=== PATIENT | female | born 1950 | race Hispanic/Latino ===

== ENCOUNTER → 2017-08-20 | Outpatient (CLI) | payer OTHER | END | disposition home or self-care (01) | LOC: RAH 12:36 | PROVIDERS: ATTEND Family Medicine | DX: J90 Pleural effusion, not elsewhere classified (principal); M47.895 Other spondylosis, thoracolumbar region; J98.11 Atelectasis; I10 Essential (primary) hypertension; R53.83 Other fatigue; J18.9 Pneumonia, unspecified organism | CPT/HCPCS: 71046 ==

== ENCOUNTER → 2017-09-08 | Outpatient (CLI) | payer OTHER | END | disposition home or self-care (01) | LOC: RAH 12:30 | PROVIDERS: ATTEND Family Medicine | DX: J90 Pleural effusion, not elsewhere classified (principal); J18.9 Pneumonia, unspecified organism | CPT/HCPCS: 71046 ==

== ENCOUNTER → 2017-09-23 | Outpatient (CLI) | payer OTHER, MEDICARE | END | disposition home or self-care (01) | LOC: RAH 14:21 | PROVIDERS: ATTEND Internal Medicine | DX: J90 Pleural effusion, not elsewhere classified (principal); D47.2 Monoclonal gammopathy | CPT/HCPCS: 77075 ==

== ENCOUNTER → 2018-11-02 | Outpatient (CLI) | payer MEDICARE, OTHER | END | disposition home or self-care (01) | LOC: RAH 12:38 | PROVIDERS: ATTEND Physical Medicine & Rehabilitation | DX: M17.11 Unilateral primary osteoarthritis, right knee (principal) | CPT/HCPCS: 73562 ==

== ENCOUNTER → 2019-01-18 | Outpatient (CLI) | payer MEDICARE, OTHER | END | disposition home or self-care (01) | LOC: OIH 15:59 | PROVIDERS: ATTEND Family Medicine | DX: R05 Cough (principal); M47.815 Spondylosis without myelopathy or radiculopathy, thoracolumbar region | CPT/HCPCS: 71046 ==

== ENCOUNTER → 2020-05-05 | Outpatient (CLI) | payer MEDICARE, OTHER | END | disposition home or self-care (01) | LOC: RAH 10:48 | PROVIDERS: ATTEND Family Medicine | DX: Z12.31 Encounter for screening mammogram for malignant neoplasm of breast (principal); N64.89 Other specified disorders of breast | CPT/HCPCS: 77067 ==

== ENCOUNTER → 2021-08-24 | Outpatient (CLI) | payer MEDICARE, OTHER | END | disposition home or self-care (01) | LOC: RAH 13:23 | PROVIDERS: ATTEND Family Medicine | DX: Z12.31 Encounter for screening mammogram for malignant neoplasm of breast (principal) | CPT/HCPCS: 77067 ==

== ENCOUNTER → 2022-08-26 | Outpatient (CLI) | payer MEDICARE, OTHER | END | disposition home or self-care (01) | LOC: RAH 12:45 | PROVIDERS: ATTEND Family Medicine | DX: Z12.31 Encounter for screening mammogram for malignant neoplasm of breast (principal) | CPT/HCPCS: 77067 ==

== ENCOUNTER → 2022-09-16 | Outpatient (CLI) | payer MEDICARE, OTHER | END | disposition home or self-care (01) | LOC: RAH 15:06 | PROVIDERS: ATTEND Family Medicine | DX: R05.3 Chronic cough (principal) | CPT/HCPCS: 71046 ==

== ENCOUNTER → 2023-09-08 | Outpatient (CLI) | payer MEDICARE, OTHER ==
[~2023-09-08] MED LIST: ASPI-1197 PO; CALC-1125 PO; DOCU-116 PO; ERGO500093 PO; FOLI0.8C PO; FOLI0.8T22 PO; GABA-529 PO; LEVO5TAB13 PO; MAGN250C PO; METF-444 PO; METH-662 PO; MONT-39 PO; TRAM50TA4 PO; VALS160T29 PO; ZINC50TA64 PO
== END | disposition home or self-care (01) ==
LOC: RAH 14:46
PROVIDERS: ATTEND Family Medicine
DX: Z12.31 Encounter for screening mammogram for malignant neoplasm of breast (principal); N63.21 Unspecified lump in the left breast, upper outer quadrant; R92.323 Mammographic fibroglandular density, bilateral breasts; R92.1 Mammographic calcification found on diagnostic imaging of breast
CPT/HCPCS: 77067

== ENCOUNTER 2024-09-13 09:32 | Emergency (ER) | payer MEDICARE, OTHER ==
[~2024-09-13] VITALS: Ht 165.1 cm; Wt 109.8 kg
[2024-09-13 09:33] VITALS: BP 157/69; PULSE 71; RESP 16; TEMP 97.9
--- NOTE | 2024-09-13 10:20 | ERN ---
General Chief Complaint: FOOT INJURY/PAIN Stated Complaint: RT FOOT PAIN X 2 WEEKS Time Seen by MD: 09:44 Source: patient History of Present Illness Initial Comments Patient is a 74-year-old female coming in complaining of right foot pain. Patient states he had a injury to a two weeks ago was evaluated at an urgent Care. She states that she got an x-ray but was not told exactly what she had. She has been having some discomfort since then. Allergies: Coded Allergies: No Known Allergies (Unverified Allergy, Unknown, 06/23/23) Home Meds Active Scripts Methocarbamol (Robaxin) 750 Mg Tab, 500 MG PO TID, #15 TAB 0 Refills Prov:SIMON CARRENO MD 06/24/23 Gabapentin (Gabapentin) 100 Mg Capsule, 100 MG PO TID, #15 CAP 0 Refills Prov:SIMON CARRENO MD 06/24/23 Docusate Sodium (Colace) 100 Mg Capsule, 100 MG PO BID, #30 CAP 0 Refills Prov:SIMON CARRENO MD 06/24/23 Tramadol Hcl (Tramadol HCl) 50 Mg Tablet, 50 MG PO Q6HPRN PRN for PAIN, #28 TAB 0 Refills Prov:SIMON CARRENO MD 06/24/23 Reported Medications Zinc Amino Acid Chelate (Zinc) 50 Mg Tablet, 50 MG PO AD, TAB 06/24/23 Magnesium Citrate and Oxide (Magnesium) 250 Mg Capsule, 250 MG PO AD, CAP 06/24/23 Folic Acid (Folic Acid) 0.8 Mg Capsule, 0.8 MG PO DAILY, CAP 06/24/23 Calcium Carbonate (Calcium) 600 Mg Calcium (1500 Mg) Tablet, 600 MG PO DAILY, TAB 06/24/23 Montelukast Sodium (Montelukast Sodium) 10 Mg Tablet, 10 MG PO HS, TAB 06/24/23 Levocetirizine Dihydrochloride (Levocetirizine Dihydrochloride) 5 Mg Tablet, 5 MG PO HS, TAB 06/24/23 Ergocalciferol (Vitamin D2) (Vitamin D2) 1,250 Mcg (22859 Unit) Capsule, 1250 MCG PO AD, CAP 06/24/23 Folic Acid/Vitamin B Comp W-C (Melody-Darlene Tablet) 0.8 Mg Tablet, 0.8 MG PO DAILY, TAB 06/24/23 Aspirin (Aspirin) 81 Mg Tab.chew, 81 MG PO HS, TAB.CHEW 06/24/23 Metformin HCl (Metformin HCl) 500 Mg Tablet, 500 MG PO BID, TAB 06/24/23 Valsartan (Valsartan) 160 Mg Tablet, 160 MG PO DAILY, TAB 06/24/23 Past Medical History Past Medical History: Cancer, Diabetes-Type II, Diverticulosis, Hypertension, Renal Disese Past Surgical History: Cholecystectomy Surgical History Other: BACK SX Social History Social History: Negative ROS Dictation CONSTITUTIONAL: No chills, no fever, no weakness, no diaphoresis, no malaise. HEAD/FACE: No signs of trauma. EENT: No eye pain, no blurred vision, no tearing, no double vision, no ear pain, no ear discharge, no nose pain, no nasal congestion, no throat pain, no throat swelling, no mouth pain. RESPIRATORY: No cough, no orthopnea, no SOB, no stridor, no wheezing. CARDIOVASCULAR: No chest pain, no edema, no palpitations, no syncope. GASTROINTESTINAL/ABDOMINAL: No abdominal pain, no constipation, no diarrhea, no nausea, no vomiting. GENITOURINARY: No abnormal discharge, no dysuria, no frequent urination, no hematuria. No complaints of pain in the genitals. MUSCULOSKELETAL: No back pain, no gout,joint pain, no joint swelling, muscle pain, no muscle stiffness, no neck pain. INTEGUMENTARY: No change in color, no change in hair/nails, no dryness, no lesion, no lumps, no rash. NEUROLOGICAL/PSYCH: No anxiety, not depressed, no emotional problem, no headache, no numbness, no pre-existing deficit, no history of seizures, no tremors, no weakness. HEMATOLOGIC/LYMPHATIC: Not anemic, no history of blood clots, no apparent bleeding, no bruising, glands not swollen. All Systems Negative, Except as Noted. Physical Exam Physical Exam Dictation VITAL SIGNS: Reviewed. GENERAL APPEARANCE: Alert, oriented x3, no acute distress, obese. HEAD AND FACE: Non-traumatic. EYES: PERRL, pink conjunctivas, eyelid no trauma, anterior chamber clear. EARS: Pinnas intact and no signs of trauma or erythema. Ear canals clear and no discharge. TMs no erythema. NOSE: No discharge, no bleeding. OROPHARYNX: Mouth normal, teeth no caries, tongue pink. Pharynx clear, no erythema. Tonsils no exudates, no abscesses noted. Mucous membrane moist. NECK: Supple, non-tender, no thyromegaly, no masses, no JVD, no bruits. BREAST: Deferred. CHEST: No tenderness, no crepitus, no paradoxical movement, no retractions. LUNGS: Clear, well-ventilated, symmetric, no rales, no wheezing, no rhonchi, no stridor, good breath sounds bilaterally. HEART: Regular rate, regular rhythm, no murmur, no gallops. VASCULAR: No peripheral edema. ABDOMEN: Soft, positive bowel sounds, nondistended, no guarding, nontender, no rebound, no masses no hepatomegaly, no splenomegaly, no Burns's sign, no hernias. RECTAL: Deferred. GENITAL: Deferred. NEUROLOGICAL: Normal speech, gross motor function intact, gross sensory function intact. MUSCULOSKELETAL: Neck nontender, full range of motion, back nontender, full range of motion. EXTREMITIES: Nontender, full range of motion. Right foot pain on palpation SKIN: Color pink, dry, no turgor, no rash, no lacerations, no abrasions, no contusions. LYMPHATICS: Deferred. Results Laboratory and Microbiology Labs Reviewed?: Yes EKG/XRAY/US/CT/MRI X-RAY Comment X-ray foot-NAD MDM MDM: Differential diagnosis: Foot fracture, contusion, sprain, Rationale: Tests considered and ordered secondary to shared decision making include: Previous outside records reviewed: Old ER visits. Risk of complication and/or morbidity or mortality of patient management: None Medications-Per medication reconciliation Need for hospitalization: Patient does not meet criteria for hospitalization. Patient is a 74-year-old female coming in to be evaluated for right foot pain. X-ray did not disclose acute findings. I did mentioned in the findings which were more chronic changes. Also advised her appropriate follow up with the PCP for ongoing management. Patient will be discharged in stable condition. ED Course Orders Procedure Category Date Status Time Foot Comp 3+Vws Rt RAD 09/13/24 Taken 09:49 Vital Signs Date Time Temp Pulse Resp B/P (MAP) Pulse Ox O2 Delivery O2 Flow Rate FiO2 09/13/24 09:33 97.9 71 16 157/69 98 Room Air 0 DX & DISP Disposition: Discharge Departure Impression: Primary Impression: Foot contusion Condition: Stable Additional Instructions: FOLLOW-UP WITH PRIMARY CARE PROVIDER IN 1 TO 2 DAYS. TAKE MEDICATIONS DIRECTED HERE IN THE EMERGENCY ROOM. OKAY TO CONTINUE HOME MEDICATIONS UNLESS OTHERWISE DISCUSSED DURING YOUR VISIT IN THE EMERGENCY ROOM TODAY. RETURN TO YOUR NEAREST EMERGENCY ROOM IF SYMPTOMS WORSEN OR IF THERE IS NO IMPROVEMENT. CALL 911 IF YOU NEED IMMEDIATE ASSISTANCE. TAKE TYLENOL [id number] NEEDED AND IF NO CONTRAINDICATIONS ARE PRESENT. INCREASE ORAL HYDRATION. A WOUND CULTURE OR URINE CULTURE WAS ORDERED HERE IN THE EMERGENCY ROOM DEPARTMENT PLEASE FOLLOW-UP WITH PRIMARY CARE PROVIDER AND ADVISE THEM TO GET REPORTS FROM OUR FACILITY. IF YOU HAD ANY SHARYN WRAP/SPLINTS THAT WERE APPLIED HERE, PLEASE DO NOT REMOVE THEM UNTIL YOU SEE YOUR PRIMARY CARE OR SPECIALTY. Referrals: Referrals: SELF,REFERRAL (PCP) TAYLOR YOST MD Time of Disposition: 10:20 WARD DIAZ MD Sep 13, 2024 10:20
--- NOTE | 2024-09-13 10:34 | HMCIMG ---
FOOT COMP 3+VWS RT HISTORY: Pain COMPARISON: None TECHNIQUE: 3 images of right foot were obtained. FINDINGS: Transverse fracture is seen involving the midportion of the fifth proximal phalanx. No dislocation is seen. There is a calcaneal spur. Degenerative changes are seen. IMPRESSION: 1. Findings as described above.
== END 2024-09-13 10:36 | disposition home or self-care (01) ==
LOC: EDH 09:32
DX: S90.31XA Contusion of right foot, initial encounter (principal); E11.9 Type 2 diabetes mellitus without complications; I10 Essential (primary) hypertension; Z79.82 Long term (current) use of aspirin; Z79.84 Long term (current) use of oral hypoglycemic drugs; Z79.899 Other long term (current) drug therapy; Z90.49 Acquired absence of other specified parts of digestive tract; X58.XXXA Exposure to other specified factors, initial encounter; Y93.89 Activity, other specified; Y92.89 Other specified places as the place of occurrence of the external cause; Y99.8 Other external cause status
CPT/HCPCS: 73630; 99283

== ENCOUNTER 2024-12-02 08:59 | Emergency (ER) | payer MEDICARE, OTHER ==
[~2024-12-02] VITALS: Ht 165.1 cm; Wt 110.7 kg
[2024-12-02 10:15] LABS: IMMATURE GRANULOCYTE ABSOLUTE 0.02 K/uL (0-1); NUCLEATED RED BLOOD CELLS 0.0 % (0.0-0.19); PLATELET COUNT (AUTO) 248 K/uL (130-400); RED BLOOD CELL COUNT(AUTO) 4.23 MIL/uL (4.00-5.50); RED CELL DISTRIBUTION WIDTH 14.7 % (11.0-15.5); WHITE BLOOD COUNT (AUTO) 6.4 K/uL (4.8-10.8)
--- NOTE | 2024-12-02 10:17 | HMCIMG ---
US VENOUS DOPPLER UNILATERAL REASON: R/O DVT, PAIN SWELLING COMPARISON: None Technique: Right venous doppler ultrasound was performed with spectral analysis and color flow imaging technique. FINDINGS: There is a normal appearance of the common femoral, deep femoral, the profunda femoris and popliteal veins. Proximal calf veins appear normal as well. There is normal response to compression and augmentation. There is no evidence of deep venous thrombosis. IMPRESSION: Normal right lower extremity venous Doppler ultrasound.
[2024-12-02 10:22] LABS: CREATININE 1.1 mg/dL (0.5-1.0); GLOMERULAR FILTR. RATE CALC 52.0 mL/min (>90); GLUCOSE,RANDOM 102.0 mg/dL (70-105); SODIUM SERUM 137.0 mmol/L (136-145); UREA NITROGEN, BLOOD 16.0 mg/dL (7-18)
[2024-12-02 10:26] LABS: INR 0.97 (0.85-1.15)
[2024-12-02] MEDS ORDERED: CLIN-141 PO (12:11)
[2024-12-02] MEDS ORDERED: NAPR-1196 PO (12:11)
--- NOTE | 2024-12-02 12:11 | ERN ---
ED Note History of Present Illness Stated Complaint: LOWER EXTREMITY Chief Complaint: Lower Extremity Pain/Injury Time Seen by MD: 09:30 Dictation: 74-year-old female presenting to the emergency department with right lower extremity pain and redness since last night. No trauma. No fever no shortness of breath Allergies: Coded Allergies: No Known Allergies (Unverified Allergy, Unknown, 06/23/23) Home Meds Active Scripts Methocarbamol (Robaxin) 750 Mg Tab, 500 MG PO TID, #15 TAB 0 Refills Prov:SIMON CARRENO MD 06/24/23 Gabapentin (Gabapentin) 100 Mg Capsule, 100 MG PO TID, #15 CAP 0 Refills Prov:SIMON CARRENO MD 06/24/23 Docusate Sodium (Colace) 100 Mg Capsule, 100 MG PO BID, #30 CAP 0 Refills Prov:SIMON CARRENO MD 06/24/23 Tramadol Hcl (Tramadol HCl) 50 Mg Tablet, 50 MG PO Q6HPRN PRN for PAIN, #28 TAB 0 Refills Prov:SIMON CARRENO MD 06/24/23 Reported Medications Zinc Amino Acid Chelate (Zinc) 50 Mg Tablet, 50 MG PO AD, TAB 06/24/23 Magnesium Citrate and Oxide (Magnesium) 250 Mg Capsule, 250 MG PO AD, CAP 06/24/23 Folic Acid (Folic Acid) 0.8 Mg Capsule, 0.8 MG PO DAILY, CAP 06/24/23 Calcium Carbonate (Calcium) 600 Mg Calcium (1500 Mg) Tablet, 600 MG PO DAILY, TAB 06/24/23 Montelukast Sodium (Montelukast Sodium) 10 Mg Tablet, 10 MG PO HS, TAB 06/24/23 Levocetirizine Dihydrochloride (Levocetirizine Dihydrochloride) 5 Mg Tablet, 5 MG PO HS, TAB 24 Ergocalciferol (Vitamin D2) (Vitamin D2) 1,250 Mcg (35277 Unit) Capsule, 1250 MCG PO AD, CAP 06/24/23 Folic Acid/Vitamin B Comp W-C (Melody-Darlene Tablet) 0.8 Mg Tablet, 0.8 MG PO DAILY, TAB 06/24/23 Aspirin (Aspirin) 81 Mg Tab.chew, 81 MG PO HS, TAB.CHEW 06/24/23 Metformin HCl (Metformin HCl) 500 Mg Tablet, 500 MG PO BID, TAB 06/24/23 Valsartan (Valsartan) 160 Mg Tablet, 160 MG PO DAILY, TAB 06/24/23 Past Medical History Past Medical History: Diabetes-Type II, Other Additional Past Medical Hx: MULTIPLE MYELOMA. Surgical History: Cholecystectomy, Other Surgical History Other: BACK SX Social History: Negative Review of System Dictation Constitutional: Negative for fever,chills, and weight loss Eyes: Negative for injury, pain,redness, and discharge ENT: Negative for injury,pain or swelling Cardiovascular: Negative for chest pain, palpitations, and edema Respiratory: Negative for shortness of breath, cough, and wheezing, Abdomen/GI: Negative for abdominal pain, nausea, vomiting, diarrhea, and constipation Back: Negative for injury and pain : Negative for injury, bleeding and discharge MS/Extremity per HPI Skin: Negative for rash, and discoloration Neuro: Negative for headache, weakness, numbness, tingling, and seizure Psych: Negative for suicide ideation, homicidal ideation, and hallucinations Initial Vital Sign VS Vital Signs Date Time Temp Pulse Resp B/P (MAP) Pulse Ox O2 Delivery O2 Flow Rate FiO2 12/02/24 09:06 98.2 76 17 144/59 98 Room Air 0 12/02/24 09:20 21 Physical Exam Dictation General: awake, alert, NAD Head/Face: Normocephalic, atraumatic Eyes: PERRL, EOMI, vision at baseline ENT: oral cavity clear, TMs clear, no signs of infection Neck: Trachea midline, supple, no nuchal rigidity Cardiovascular: RRR, normal S1/S2, No MRGs, no JVD Respiratory: CTAB, no respiratory distress, No rales or wheezes Abdomen: Soft, non-tender, non-distended, normal bowel sounds, no guarding or rebound. Skin: Warm, dry, normal turgor, no rash MS/Extremity: Pulses equal, no cyanosis, neurovascular intact, FROM, right lower extremity shows 2+ pulses good cap refill, mild erythema noted no signs of crepitus compartments soft Neuro: COAx4, GCS 15, strength 5/5, CN 2-12 intact, normal cerebellar exam, normal gait, Psych: Normal behavior, mood, and affect normal Results (Laboratory/Radiology) Laboratory/Radiology Laboratory Tests Test 12/02/24 10:06 12/02/24 11:15 White Blood Count 6.4 K/uL (4.8-10.8) Red Blood Count 4.23 MIL/uL (4.00-5.50) Hemoglobin 11.4 g/dL (12.0-16.0) L Hematocrit 36.6 % (36-48) Mean Corpuscular Volume 86.5 fL (79-99) Mean Corpuscular Hemoglobin 27.0 pg (27.0-33.0) Mean Corpuscular Hemoglobin Concent 31.1 g/dL (32.0-36.0) L Red Cell Distribution Width 14.7 % (11.0-15.5) Platelet Count 248 K/uL (130-400) Mean Platelet Volume 10.1 fL (7.5-10.5) Immature Granulocyte % (Auto) 0.3 % (0-1) Neutrophils (%) (Auto) 67.5 % (40.0-77.0) Lymphocytes (%) (Auto) 18.2 % (21.0-51.0) L Monocytes (%) (Auto) 10.3 % (3.0-13.0) Eosinophils (%) (Auto) 2.8 % (0.0-8.0) Basophils (%) (Auto) 0.9 % (0.0-5.0) Neutrophils # (Auto) 4.3 K/uL (1.8-7.7) Lymphocytes # (Auto) 1.2 K/uL (1.0-4.8) Monocytes # (Auto) 0.7 K/uL (0.1-1.0) Eosinophils # (Auto) 0.18 K/uL (0.00-0.70) Basophils # (Auto) 0.06 K/uL (0.00-0.20) Absolute Immature Granulocyte (auto 0.02 K/uL (0-1) Nucleated Red Blood Cells 0.0 % (0.0-0.19) Prothrombin Time 10.3 SEC (9.6-11.6) Prothromb Time International Ratio 0.97 (0.85-1.15) Activated Partial Thromboplast Time 26.7 SEC (26.3-35.5) Sodium Level 137 mmol/L (136-145) Potassium Level 4.0 mmol/L (3.5-5.1) Chloride Level 102 mmol/L (101-111) Carbon Dioxide Level 28 mmol/L (21-32) Blood Urea Nitrogen 16 mg/dL (7-18) Creatinine 1.1 mg/dL (0.5-1.0) H Glomerular Filtration Rate Calc 52 mL/min (>90) Random Glucose 102 mg/dL (70-105) Total Calcium 8.5 mg/dL (8.5-10.1) Troponin I High Sensitivity 17 ng/L (4-50) Lactic Acid Level 1.3 mmol/L (0.8-2.5) Labs Reviewed?: Yes EKG Comment: Heart rate 68 normal sinus rhythm normal intervals no STEMI ED Course ED Course Orders Procedure Category Date Status Time Us Venous Doppler US 12/02/24 Resulted Unilateral 09:50 12 Lead Ekg Tracing- EKG 12/02/24 Logged Technical 09:57 Basic Metabolic Panel LAB 12/02/24 Complete 09:57 Cbc With Differential LAB 12/02/24 Complete 09:57 Troponin I High LAB 12/02/24 Complete Sensitivity 09:57 Pt And Ptt LAB 12/02/24 Complete 09:57 Ondansetron 4mg Inj PHA 12/02/24 Complete (Zofran 4mg Inj) 10:00 Morphine 4mg Syg PHA 12/02/24 Complete (Morphine 4mg Syg) 10:00 Lactic Acid LAB 12/02/24 Complete 11:07 Blood Cult BRENNEN 12/02/24 In Process 11:07 Ceftriaxone 2gm Vial PHA 12/02/24 Complete (Rocephin 2gm Inj) 11:30 Current Medications Medications (Trade) Dose Ordered Sig/Brandon Route PRN Reason Start Time Stop Time Status Last Admin Dose Admin Ceftriaxone Sodium (Rocephin 2gm Inj) 2 gm ONCE ONCE IVPB 12/02/24 11:30 12/02/24 11:31 DC 12/02/24 12:00 Morphine Sulfate (morPHINE 4MG SYG) 4 mg ONCE ONCE IVP 12/02/24 10:00 12/02/24 10:01 DC 12/02/24 10:48 Ondansetron HCl (zoFRAN 4MG INJ) 4 mg ONCE ONCE IVP 12/02/24 10:00 12/02/24 10:01 DC 12/02/24 10:48 Vital Signs Date Time Temp Pulse Resp B/P (MAP) Pulse Ox O2 Delivery O2 Flow Rate FiO2 12/02/24 09:20 68 18 139/60 94 Room Air* 0 21 12/02/24 09:06 98.2 76 17 144/59 98 Room Air 0 Medical Decision Making MDM MDM: Differential diagnosis: Rationale: Tests considered and ordered secondary to shared decision making include: Previous outside records reviewed: Old ER visits. Risk of complication and/or morbidity or mortality of patient management: None Medications-Per medication reconciliation Need for hospitalization: Patient does not meet criteria for hospitalization. Need for emergency major/minor surgery: No There are no social concerns with this patient. Prescription drug management Prescriptions will include symptomatic care Patient's prior external medical records from other ER visits were reviewed by me as indicated. Prior testing and results from previous visits were reviewed. Prior tests were taken into account with medical decision making and resource utilization, independent historian/historians were used to obtain complete medical history. I independently interpreted the test that were performed, results were reviewed by me and considered findings on radiology if ordered. Medical management and examination interpretation discussions were had by me with other qualified healthcare professionals as indicated for the patient's care. 74-year-old female with right lower extremity, erythema, stable exam negative ultrasound labs stable nontoxic prescriptions given no DVT no signs of vascular compromise DX & DISP Disposition: Discharge Departure Impression: Primary Impression: Right leg swelling Condition: Stable Scripts Naproxen (Naproxen) 250 Mg Tablet 250 MG PO BID for 5 Days, #10 TAB Prov: GLENNY OTERO MD 12/02/24 Clindamycin HCl (Clindamycin HCl) 300 Mg Capsule 1 CAP PO QID for 10 Days, #40 CAP 0 Refills Prov: GLENNY OTERO MD 12/02/24 Referrals: CORA DIAZ MD (PCP) GLENNY OTERO MD Dec 02, 2024 12:11
[2024-12-02 12:15] VITALS: BP 131/66; PULSE 71; RESP 20; TEMP 98; O2SAT 98
--- NOTE | 2024-12-02 12:22 | EKG ---
[facility] Test Date: 2024-12-02 Test Time: 10:08:36 Pat Name: WARD MONCADA Department: ED Room: Gender: F Follow Up Specialist: [facility] : 1950 Requested By: GLENNY OTERO Order Number: [id number] Reading MD: Sonu Kilpatrick Measurements Intervals Paicines Rate: 68 P: 62 HI: 160 QRS: -27 QRSD: 95 T: 46 QT: 416 QTc: 440 Interpretive Statements Sinus rhythm Atrial premature complex No previous ECG available for comparison Electronically Signed On 12-03-2024 02:17:36 CDT by Sonu Kilpatrick Please click the below link to view image of tracing.
== END 2024-12-02 12:45 | disposition home or self-care (01) ==
LOC: EDH 08:59
DX: R22.41 Localized swelling, mass and lump, right lower limb (principal); M79.661 Pain in right lower leg; E11.9 Type 2 diabetes mellitus without complications; Z79.82 Long term (current) use of aspirin; Z79.84 Long term (current) use of oral hypoglycemic drugs; Z79.899 Other long term (current) drug therapy; Z90.49 Acquired absence of other specified parts of digestive tract
CPT/HCPCS: 99285; 96374; 93971; 96375; 84484; 80048; 85025; 85610; 85730; 87040 ×2; 83605; 36415; 93005; J0696; J2405; J2270

== ENCOUNTER → 2024-12-03 | Outpatient (CLI) | payer MEDICARE, OTHER ==
[~2024-12-03] MED LIST changes: +CLIN-141 PO; +NAPR-1196 PO
--- NOTE | 2024-12-03 11:14 | HMCIMG ---
FOOT COMP 3+VWS RT REASON: Pain in right ankle and joints of right foot TECHNIQUE: 3 views were obtained. FINDINGS: There is fracture of the midshaft of the fifth proximal phalanx. The remaining osseous structures and joint space appears to be normal.. There is no joint effusion. The soft tissues appear unremarkable. There is no evidence of a radiopaque foreign body. There is mild osteopenia. IMPRESSION: Fracture of the right fifth proximal phalanx with early callus formation suggesting a subacute. Osteopenia
--- NOTE | 2024-12-03 11:16 | HMCIMG ---
ANKLE COMP 3VWS RT REASON: Pain in right ankle and joints of right foot TECHNIQUE: 3 views were obtained. FINDINGS: There is suspicion for avulsion fracture of the medial normal limits. It is minimally displaced. There is no joint effusion. There is bimalleolar soft tissue swelling. There is no evidence of a radiopaque foreign body. There is osteopenia of the osseous structure. IMPRESSION: Suspicion for a medial malleolus fracture Osteopenia . Bimalleolar soft tissue swelling.
== END | disposition home or self-care (01) ==
LOC: RAH 09:53
PROVIDERS: ATTEND Family Medicine
DX: S92.511A Displaced fracture of proximal phalanx of right lesser toe(s), initial encounter for closed fracture (principal); M25.571 Pain in right ankle and joints of right foot; M79.671 Pain in right foot; M85.871 Other specified disorders of bone density and structure, right ankle and foot; X58.XXXA Exposure to other specified factors, initial encounter; Y93.89 Activity, other specified; Y92.89 Other specified places as the place of occurrence of the external cause; Y99.8 Other external cause status
CPT/HCPCS: 73610; 73630